=== PATIENT | male | born 2000 | race Caucasian/White ===

== ENCOUNTER 2018-03-02 11:09 | Emergency (ER) | payer MEDICAID ==
[~2018-03-02] VITALS: Ht 167.6 cm; Wt 75.0 kg
[2018-03-02 11:14] VITALS: BP 111/74
[2018-03-02] MEDS ORDERED: DEXAMETHASONE 4 MG/ML, 1ML PO ONE (11:30)
[2018-03-02] MEDS ORDERED: DEXAMETHASONE 4 MG/ML, 1ML ONE (11:47)
== END 2018-03-02 11:55 | disposition home or self-care (01) ==
LOC: ED 11:19
DX: S16.1XXA Strain of muscle, fascia and tendon at neck level, initial encounter (principal); J02.0 Streptococcal pharyngitis; V47.6XXA Car passenger injured in collision with fixed or stationary object in traffic accident, initial encounter; Y93.89 Activity, other specified; Y92.89 Other specified places as the place of occurrence of the external cause; Y99.8 Other external cause status
CPT/HCPCS: 99283; J1100

== ENCOUNTER 2018-05-25 07:05 | Emergency (ER) | payer MEDICAID, OTHER ==
[~2018-05-25] VITALS: Ht 182.9 cm; Wt 70.0 kg
[2018-05-25 07:07] VITALS: BP 117/67
[2018-05-25] MEDS ORDERED: BACITRACIN ZINC OINT 500U/GM, 0.9 GM ONE (08:17)
== END 2018-05-25 08:30 | disposition home or self-care (01) ==
LOC: ED 08:20
DX: S60.032A Contusion of left middle finger without damage to nail, initial encounter (principal); S60.042A Contusion of left ring finger without damage to nail, initial encounter; W23.0XXA Caught, crushed, jammed, or pinched between moving objects, initial encounter; Y93.89 Activity, other specified; Y92.69 Other specified industrial and construction area as the place of occurrence of the external cause; Y99.0 Civilian activity done for income or pay
CPT/HCPCS: 99283

== ENCOUNTER 2019-03-05 18:05 | Emergency (ER) | payer SELFPAY ==
[~2019-03-05] VITALS: Ht 165.1 cm; Wt 57.0 kg
--- NOTE | 2019-03-05 18:07 | NUR ---
PATIENT BROUGHT IN BY [facility] WITH CHIEF COMPLAINT OF ATTEMPT TO HURT HIMSELF- BY USING RAZOR TO CUT RIGHT WRIST ABOUT 15 TIMES. PATIENT HE DOESNT WANT TO , JUST HARM HIMSELF. PER REPORT FROM EMS THE WOUNDS WERE SUPERFICIAL AND BLEEDING CONTROLLED WITH SIMPLE GAUZE. THE PATIENT IS ALERT, ORIENTED, WARM, DRY, AND COOPERATIVE.
[2019-03-05 18:16] VITALS: BP 130/87
[2019-03-05] MEDS ORDERED: NEOSPORIN OINT. PKT 1 PACKET ONE (18:16)
--- NOTE | 2019-03-05 18:18 | NUR ---
PER PATIENT- "KAROLINE BEEN HAVING TROUBLE WITH MY ROOMMATES, AND JUST FEELING DEPRESSED. SO I WANTED TO HURT MYSELF"
--- NOTE | 2019-03-05 18:21 | NUR ---
URINE WALKED TO LAB. SITTER AT BEDSIDE FOR CLOSE OBS PRECAUTIONS. TECH AT BEDSIDE FOR WOUND CLEANING AND DRESSING.
--- NOTE | 2019-03-05 18:27 | NUR ---
PT STATES HE WAS NOT GETTING ALONG WITH HIS ROOMMATES AND WAS FEELING DEPRESSED. PT WANTED TO HARM SELF BUT NOT SUICIDAL PER PT.
--- NOTE | 2019-03-05 18:30 | NUR ---
TELEPSYCH ROBOT IN ROOM.
--- NOTE | 2019-03-05 18:30 | NUR ---
LAB AT BEDSIDE.
[2019-03-05 18:42] LABS: AMPHETAMINE SCREEN, URINE Negative (Negative); BARBITURATE SCREEN, URINE Negative (Negative); BENZODIAZEPINE SCREEN, URINE Positive (Negative); CANNABINOID SCREEN, URINE Positive (Negative); COCAINE SCREEN, URINE Negative (Negative); METHADONE SCREEN, URINE Negative (Negative); OPIATE SCREEN, URINE Positive (Negative)
--- NOTE | 2019-03-05 18:49 | NUR ---
REPORT GIVEN TO BRIAN SPEAR. PT AMBULATED FROM ROOM 1 TO ROOM 40 WITH STEADY GAIT, BELONGINGS TRANSFERRED WITH PT.
[2019-03-05 18:50] LABS: ALANINE AMINOTRANSFERASE 20 U/L (12-78); ALBUMIN 4.4 g/dL (3.4-5.0); ANION GAP 6 mmol/L (5-15); CALCIUM 9.4 mg/dL (8.5-10.1); CHLORIDE 104 mmol/L (98-107)
[2019-03-05 18:52] LABS: ALKALINE PHOSPHATASE 70 U/L (45-117); BILIRUBIN,TOTAL 0.5 mg/dL (0.2-1.0); SALICYLATE LEVEL < 1.7 mg/dL (2.8-20.0); TOTAL PROTEIN 8.2 g/dL (6.4-8.2)
[2019-03-05 18:53] LABS: BASOPHILS # (AUTO) 0.05 x10^3/uL (0-0.3); BASOPHILS % (AUTO) 1 % (0-1); EOSINOPHILS # (AUTO) 0.13 x10^3/uL (0-0.8); EOSINOPHILS % (AUTO) 3 % (1-7); LYMPHOCYTES # (AUTO) 0.98 x10^3/uL (1-6.1); LYMPHOCYTES % (AUTO) 23 % (22-44); MEAN CORPUSCULAR HEMOGLOBIN 24.8 pg (27.5-34.5); MEAN CORPUSCULAR HGB CONC 31.8 g/dL (33.2-36.2); MEAN CORPUSCULAR VOLUME 78.1 fL (81-97); MEAN PLATELET VOLUME 7.7 fL (7.4-10.4); MONOCYTES # (AUTO) 0.43 x10^3/uL (0-1.4); MONOCYTES % (AUTO) 10 % (2-9); NEUTROPHILS # (AUTO) 2.64 x10^3/uL (1.8-8.0); NEUTROPHILS % (AUTO) 63 % (42-75); PLATELET COUNT 362 x10^3/uL (130-400); RED BLOOD COUNT 5.68 x10^6/uL (4.38-5.82)
--- NOTE | 2019-03-05 18:57 | NUR ---
REPORT FROM BRIAN JONAS
[2019-03-05 19:18] LABS: MD NO
--- NOTE | 2019-03-05 19:59 | NUR ---
PT PROVIDED A MEAL FROM [employer].
--- NOTE | 2019-03-05 20:29 | NUR ---
TELEPSYCH CONSULT INITIATED BY DONNA RN @ 2024. SPOKE WITH JAY AT [facility].
--- NOTE | 2019-03-05 22:35 | NUR ---
REPORT TO [facility] MD
== END 2019-03-05 23:17 | disposition home or self-care (01) ==
LOC: ED 18:50
DX: F43.20 Adjustment disorder, unspecified (principal); S60.812A Abrasion of left wrist, initial encounter; S60.811A Abrasion of right wrist, initial encounter; F17.200 Nicotine dependence, unspecified, uncomplicated; X78.9XXA Intentional self-harm by unspecified sharp object, initial encounter; Y93.89 Activity, other specified; Y92.89 Other specified places as the place of occurrence of the external cause; Y99.8 Other external cause status
CPT/HCPCS: 36415; 80053; 80307; 85025; 99284